=== PATIENT | male | born 1985 | race Hispanic/Latino ===

== ENCOUNTER 2017-02-05 06:45 | Day surgery (SDC) | payer OTHER ==
[2017-02-03 14:30] VITALS: BMI 25.8
[2017-02-05 07:04] VITALS: RESP 18
--- NOTE | 2017-02-05 07:34 | CP.SDSHP ---
Same Day Surgery H & P - History Proposed Procedure: Left biceps tendon repair Pre-Op Diagnosis: Left distal biceps tendon high grade partial tear - Previous Medical/Surgical History Comments: denies PMH. non smoker Previous Surgical History: Left shoulder, foot, knee arthroscopy, right elbow - Allergies Allergies: Allergies No Known Allergies Allergy (Verified 07/10/15 15:17) - Physical Exam Vital Signs: Vital Signs 02/05/17 02/05/17 07:02 07:04 Temperature 98.1 F Pulse Rate 56 L 56 L Respiratory 18 Rate Blood Pressure 134/84 O2 Sat by Pulse 97 Oximetry Mental Status: Alert & Oriented x3 Heart: WNL Lungs: WNL GI: WNL - {Optional Preform as Required} Ortho: Other (+radial pulse, palpable defect of tendon, sensation intact, full ROM wrist/elbow) Other Pertinent Findings: MRI at outside facility, on chart. 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 Patient counseled on the risks of addiction, physical or psychological dependence, and overdose associated with opioid drugs and the danger of taking opioid drugs with alcohol and other central nervous system depressants, and cautioned patient on storage and disposal. 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 Evaluated Today:Candidate for Anesthesia & Procedure: Yes - Date & Time Date: 02/05/17 Time: 07:34 Short Stay Discharge - Short Stay Discharge Admitting Diagnosis/Reason for Visit: [id number] Disposition: HOME/ ROUTINE Referrals: Radhames Coburn III, MD [Primary Care Provider] - Past Patient History - Past Medical History & Family History Past Medical History?: No - Past Social History Smoking Status: Never Smoked - CARDIAC Hx Cardiac Disorders: No - PULMONARY Hx Respiratory Disorders: No - NEUROLOGICAL Hx Neurological Disorder: No - HEENT Hx HEENT Problems: No - RENAL Hx Chronic Kidney Disease: No - ENDOCRINE/METABOLIC Hx Endocrine Disorders: No - HEMATOLOGICAL/ONCOLOGICAL Hx Blood Disorders: No - INTEGUMENTARY Hx Dermatological Problems: No - MUSCULOSKELETAL/RHEUMATOLOGICAL Hx Musculoskeletal Disorders: No - GASTROINTESTINAL Hx Gastrointestinal Disorders: No - GENITOURINARY/GYNECOLOGICAL Hx Genitourinary Disorders: No - PSYCHIATRIC Hx Psychophysiologic Disorder: No - SURGICAL HISTORY Hx Surgeries: Yes Hx Arthroscopy: Yes (LEFT KNEE .LEFT SHOULDER) Hx Musculoskeletal Surgery: Yes (RIGHT FOOT . RIGHT ELBOW) Hx Orthopedic Surgery: Yes (left shoulder-2015,) Other/Comment: right elbow-bone chips-2012,left knee meniscus repair-2010 - ANESTHESIA Hx Anesthesia: Yes Hx Anesthesia Reactions: No Hx Malignant Hyperthermia: No Has any member of the family had a problem w/ anesthesia?: No
[2017-02-05] MEDS ORDERED: Succinylcholine 200 mg/10 ml Inj IV ONE (07:38)
[2017-02-05] MEDS ORDERED: Propofol 10 mg/ml Inj (20 ML) ONE (07:38)
[2017-02-05] MEDS ORDERED: Midazolam 2 MG/2 ML VIAL ONE (07:39)
[2017-02-05] MEDS ORDERED: Bupivacaine 0.5% Inj(30mL) ONE (07:43)
[2017-02-05] MEDS ORDERED: methylPREDNISolone Depo 80 mg/ml Inj ONE (07:43)
[2017-02-05] MEDS ORDERED: ceFAZolin IV 1 gm in Dextrose 2 GM/100 ML BAG IVPB ONE (07:43)
[2017-02-05] MEDS ORDERED: Ropivacaine 0.5% 30ML IV ONE (07:45)
[2017-02-05] MEDS ORDERED: Bacitracin Ointment 30 GM TUBE ONE (07:52)
[2017-02-05] MEDS ORDERED: Lactated Ringer's 1,000 ML IV ONE ×2 (08:42→11:30)
[2017-02-05] MEDS ORDERED: Rocuronium 10 mg/ml (5 ml) ONE (08:59)
[2017-02-05] MEDS ORDERED: Desflurane Inhalation Anesthetic Liq (240 ml) ONE (10:04)
[2017-02-05] MEDS ORDERED: Neostigmine Methylsulfate 2 MG/2 ML ML IV ONE (10:35)
--- NOTE | 2017-02-05 11:23 | PCM.ANESB1 ---
Interscalene Block - Brachial Plexus Date of Procedure: 02/05/17 Anesthesiologist: delisa Pre-Procedure Diagnosis: left biceps rupture Post-Procedure Diagnosis: same Procedure Performed: Interscalene Block of Brachial Plexus Left - Procedure Interscalene Block of Brachial Plexus: This procedure was explained to the patient that it is for post-operative pain management. Consent was obtained after a thorough discussion with the patient regarding the benefits and possible complications of local anesthetic block of the Brachial Plexus at the Interscalene area. The patient was brought to the Operating Room and standard monitors were applied. Time out was held with the circulating nurse to confirm the correct surgery and appropriate block. After applying Oxygen by nasal cannula and administering IV Sedation, the patient's head was gently rotated away from the _left operative shoulder and the anterior scalene groove was carefully palpated. The ultrasound transducer was then applied to the skin in the transverse plane and the brachial plexus was visualized lateral to the carotid artery and in between the anterior and middle scalene muscles. After identification,the anterior lateral portion of the neck was prepped with Betadine solution three times and Lidocaine 1% was injected subcutaneously for topical analgesia. At this point, a # 22 gauge Stimuplex 2 inches insulated needle was inserted into the interscalene groove and directed in a caudal and midline direction. The needle was inserted lateral to the ultrasound transducer in-plane towards the brachial plexus in a [id number] direction. Needle advancement was performed carefully under direct ultrasound visualization. Nerve stimulator was used and twitched of the affected extremity including the hand brachialis muscles, biceps and the deltoid was obtained at a current of ___2.0__MA. After repeated negative aspiration,___1__cc of__0.5___,___ropivicaine were injected and this was followed with _19____cc of _0.5____% ropivicaine . Under ultrasound guidance the local anesthetics were observed surrounding the roots of the brachial plexus. The needle was removed intact and sterile dressing was applied. The patient had stable vital signs, was conscious and in no apparent distress. The patient tolerated the interscalene block of the bracheal plexus well with stable vital signs and was prepared for subsequent surgery.
--- NOTE | 2017-02-05 12:43 | PCM.SURG1 ---
Surgeon's Initial Post Op Note - Surgeon's Notes Surgeon: Almas Wheel Buffer: MAURICE Fernandez Type of Anesthesia: General Endo, Block Regional Anesthesia Administered By: DR Mcmahon Pre-Operative Diagnosis: Rupture L Biceps tendon Operative Findings: as above Post-Operative Diagnosis: as above Operation Performed: Primary repair L Biceps tendon rupture. Exploration/ neurolysis L antebrachial cutaneous nerve. tenosynovecotmy biceps tendon. applx long arm splint. positioning of fluoro /interpretation of video images Specimen/Specimens Removed: tenosynvoium/biceps tendon Estimated Blood Loss: EBL {In ML}: 10 Blood Products Given: N/A Drains Used: No Drains Post-Op Condition: Good Date of Surgery/Procedure: 02/05/17 Time of Surgery/Procedure: 09:35 (time in room 8:50/anesrthesia indcution time 8 :50)
[2017-02-05 13:38] VITALS: O2SAT 98
[2017-02-05] MEDS ORDERED: Oxycodone/Acetaminophen 5/325 mg Tab PO STA (13:55)
--- NOTE | 2017-02-05 14:29 | CP.PCM.PN ---
Subjective - Date & Time of Evaluation Date of Evaluation: 02/05/17 Time of Evaluation: 14:27 - Subjective Subjective: Called to see patient for splint being "too tight" per patient. Benigno removed and adjusted, no relief. Advised pt this is surgical pain, and will add one dose of toradol. Ice encouraged. Patient c/o tinging to hand, advised him this likely due to nerve block, and to call office in am if this is not improving. D/w Dr. Coburn, states splint is well padded. d/c home, elevation, f/u 8 days call for appointment Objective - Vital Signs/Intake and Output Vital Signs (last 24 hours): Temp Pulse Resp BP Pulse Ox 98.1 F 49 L 18 114/73 98 02/05/17 13:28 02/05/17 13:28 02/05/17 13:28 02/05/17 13:28 02/05/17 13:40 Intake and Output: 02/05/17 02/05/17 06:59 18:59 Intake Total 1600 Balance 1600 - Medications Medications: Current Medications Ketorolac Tromethamine (Toradol) 30 mg IVP ONCE ONE Stop: 02/05/17 14:27
--- NOTE | 2017-02-05 14:35 | RAD ---
PROCEDURE: Radiographs of the left elbow. HISTORY: S/P left bicep tendon repair COMPARISON: No prior. FINDINGS: BONES: Surgical defect is appreciated at the proximal radius status was left biceps tendon repair. No acute fracture or dislocation identified. JOINTS: Normal. No osteoarthritis. SOFT TISSUES: Normal. JOINT EFFUSION: None. OTHER FINDINGS: Antecubital fossa and proximal ventral forearm soft tissue postoperative emphysema is appreciated. IMPRESSION: Postoperative changes as discussed above. No acute fracture or dislocation identified.
[2017-02-05 14:47] VITALS: TEMP 98.2
--- NOTE | 2017-02-05 14:51 | RAD ---
PROCEDURE: Intraoperative Fluoroscopy. HISTORY: LEFT BICEP TENDON REPAIR FINDINGS: Fluoroscopic assistance was provided for left biceps tendon repair. seconds of fluoro time was utilized.
[2017-02-05] MEDS ORDERED: Oxycodone/Acetaminophen 5/325 mg Tab PO ONE (15:30)
[2017-02-05 16:02] VITALS: BP 118/76; PULSE 52
--- NOTE | 2017-02-06 09:30 | OP ---
PROCEDURE DATE: 02/05/2017 LOCATION: [facility]. PREOPERATIVE DIAGNOSIS: Ruptured left biceps tendon. POSTOPERATIVE DIAGNOSES: 1. Ruptured left biceps tendon. 2. Compression of the lateral antebrachial cutaneous nerve. 3. Tenosynovitis of the distal aspect of the biceps tendon. OPERATIVE FINDINGS: As above. PROCEDURES: 1. Primary repair of the biceps tendon rupture. 2. Neurolysis, lateral antebrachial cutaneous nerve. 3. Partial tenosynovectomy. 4. Application of long-arm splint. 5. Positioning of fluoroscope, interpretation of video images. SURGEON: Radhames Coburn MD MACHINIST LINOTYPE: Felicia Griffith, certified registered nursing first line production supervisor. The certified registered nursing first line production supervisor was necessary to the completion of the operative goal. SECOND VASCULAR MANAGER: Mu Stroud. COMPLICATIONS: None. DRAINS: None. BLOOD LOSS: Approximately 10-15 mL. BLOOD PRODUCTS GIVEN: None. POSTOPERATIVE CONDITION: Stable. TIME OF SURGERY: Time in the room 08:50, anesthesia induction time 08:50, incision time 09:35. 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 The patient was at a bout when he sustained an injury while grappling, noted a pop in the left elbow with pain and inability to fully flex. He noted immediate deformity of the biceps tendon and muscle. The patient was admitted after MRI examination was accomplished. MRI examination reveals evidence of the biceps tendon rupture. Pros, cons, risks, and benefits of surgical approach were discussed. The concepts of nerve injury, mechanical failure, re-rupture, infection, secondary or tertiary surgery were discussed. The patient can no longer withstand the discomfort and wished the surgery to be accomplished. DESCRIPTION OF PROCEDURE: After having obtained informed consent in the above fashion; after the satisfactory induction of general endotracheal anesthesia and upper extremity block by Dr. Mcmahon; after having identified side, site, and procedure and critical pause/time-out, the patient identified as Lucio Duffy in the supine position with all bony prominences well padded. The left upper extremity was prepped and free draped in usual fashion for upper extremity surgery. The tourniquet had been applied, but was not yet inflated. After sterilely prepping and draping the elbow, under the surgeon's direction, the fluoroscope was positioned, video images were generated, therapeutic decisions were made therefrom. After exsanguinating the limb using a 6-inch Esmarch bandage, the tourniquet, which had been applied, was inflated to 250 mmHg. The operation was performed under 2.0 times magnification eyeglasses. An incision was described 4 cm distal to the flexion crease to the elbow. Under the surgeon's direction, the fluoroscope was positioned, video images were generated, therapeutic decisions were made therefrom. This having been accomplished, the radial tuberosity was identified and the skin incision was approximately 4 cm distal to the transverse flexor skin crease. The skin incision was carried down through the skin and subcutaneous tissues. At this point in time, blunt dissection was carried out and the lateral antebrachial cutaneous nerve was identified. There was found to be an evidence of compression. Careful decompression using a Metzenbaum scissors under magnification vision was accomplished. The lateral antebrachial cutaneous nerve was decompressed and a neurolysis of the lateral antebrachial cutaneous nerve was accomplished using the dissecting scissors. This having been accomplished, the entire extent of the lateral antebrachial cutaneous nerve was exposed. The vasculature in the antecubital fossa was controlled using the Bettie drain. This having been accomplished, the lateral antebrachial nerve was freed up and was protected with an [facility] retractor. This having been accomplished, the seroma was evacuated and the biceps tendon avulsion was identified and brought into the wound. There was found to be a great deal tenosynovectomy and scarring, so a careful biceps tenosynovectomy and excision of scar was accomplished. Using a tongue depressor and by freeing up the biceps muscle, the biceps tendon was brought into the wound. This having been accomplished, a whipstitch in the fashion described in the Arthrex technique was accomplished to whipstitch the biceps tendon. This was accomplished to straighten the biceps tendon as well. This having been accomplished, dissection was carried down in the interval between the radial musculature and the interval protecting the lateral antebrachial cutaneous nerve. Bleeders were controlled with suture ligature. This having been accomplished, a plane was developed, vessels were encountered. Great care was taken to avoid injury to the radial nerve or the posterior interosseous branch of the radial nerve. With the forearm in supination, a plane was developed. It should be noted that prior to whipstitching the biceps tendon, a careful biceps tenosynovectomy was accomplished. It was having extreme tenosynovitis and actually some hyalinization as well, speaking for the fact that this is an acute on chronic distal biceps tendon rupture. This having been accomplished, the lateral brachial neurolysis was accomplished. The dissection was carried down in the interval between the radial musculature and the interval protecting the lateral antebrachial cutaneous nerve. Bleeders having been controlled, the radial tuberosity was identified. With the forearm in supination to protect the posterior interosseous nerve, the plane was developed. It should be noted that prior to whipstitching the biceps tendon, the biceps tenosynovectomy having been accomplished. The wound was thoroughly irrigated. Hemostasis was controlled. Sharp dissection was carried out eliminating the soft tissues from the radial tuberosity. Under the surgeon's direction, the fluoroscope was positioned. The radial tuberosity was identified. The guide pin was placed through the radial tuberosity under direct vision with the arm in supination. This having been accomplished, the button for the sliding fixation technique was prepared with the free ends of the whipstitched biceps tendon, placing the anchor. The guide pin was placed bicortically. Reaming was accomplished unicortically. This having been accomplished with the biceps tendon loaded on the anchor, the anchor was placed through the radial tuberosity through the small aperture. This having been accomplished, the flip anchor is deployed and the tendon was pulled up into the aperture. This having been accomplished, fixation was found to be excellent. The instrument's garbage collection supervisor button having been flipped to flip the anchor, further seating of the biceps tendon unicortical aperture was accomplished using a composite interference screw placed as a secondary means of fixation suture was placed and the screw was inserted with excellent interference fit. The two free ends of the biceps tendon were secured and tied. The wound was sterilely irrigated. Closure was in layers with interrupted Vicryl and 2-0 Quill plastic closure. A Oli Lanza compression dressing and posterior splint were applied. Postoperative x-rays revealed acceptable position of the construct. The patient's neurocirculatory status was intact in recovery, the patient having been transferred from the OR table to the stretcher having tolerated the procedure well. 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 Postoperative x-rays revealed excellent position of the construct. Radhames Coburn MD
== END 2017-02-05 16:15 | disposition home or self-care (01) ==
LOC: H.OPSURG 06:45
PROVIDERS: ATTEND Orthopaedic Surgery
DX: S46.112D Strain of muscle, fascia and tendon of long head of biceps, left arm, subsequent encounter (principal); X58.XXXD Exposure to other specified factors, subsequent encounter
CPT/HCPCS: 25110; 64708; 73070; 88304; 88305; J0330; J0690; J1170; J1885; J2001; J2250; J2704; J2710; J3010; J7120